=== PATIENT | female | born 1975 | race Caucasian/White ===

== ENCOUNTER 2023-09-22 11:43 | Day surgery (SDC) | payer OTHER ==
[~2023-09-22] VITALS: Ht 167.6 cm; Wt 68.2 kg
[~2023-09-22 11:43] MED LIST: IBLOOD GLUCOSE TEST STRIP 1 EA TEST VI PRN; LACTATED RINGER'S 1,000 ML IV SCH; LIDOCAINE HCL 1% 5 ML SDV INJ ONE; MIDAZOLAM HCL 5 MG/5 ML VIAL IV PRN; fentaNYL citrate 100 MCG/2 ML VIAL IV PRN
[2023-09-22 12:05] VITALS: BP 138/82
[2023-09-22] MEDS ORDERED: fentaNYL citrate 100 MCG/2 ML VIAL ONE (14:00)
[2023-09-22] MEDS ORDERED: MIDAZOLAM HCL 5 MG/5 ML VIAL ONE (14:00)
[2023-09-22 15:25] VITALS: BP 107/62
--- NOTE | 2023-09-22 15:53 | NUR ---
09/22/23 1553 Sheets,Tory 1452 PT ARRIVED TO PACU ON 3L VIA NC (NOT MASK) AND RESP EVEN AND UNLABORED. PT WAKES EASILY AND DENIES CONCERNS. PT ENCOURAGED TO PASS GAS NEEDED AND PLAN OF CARE DISCUSSED. 1456 O2 TRUNED OFF 1501 MD AT BEDSIDE TALKING TO PT. 1520 PT SIPPING SODA WITH NO CONCERNS. 1532 DC INSTRUCITONS GIVEN AND PT DRESSED HERSELF. PT DC WITH PAPERWORK AND ALL BELONGINGS. PT DC VIA WC
--- NOTE | 2023-09-24 12:12 | OR ---
[facility] [address] [place], [place] [address] Signed DATE OF OPERATION: 09/22/2023 SURGEON: Shane Musa MD PREOPERATIVE DIAGNOSIS: Colon screening. POSTOPERATIVE DIAGNOSIS: Normal colon to cecum. PROCEDURE: Total colonoscopy to cecum. ANESTHESIA: Intravenous sedation fentanyl 150 mcg and Versed 7 mg. INDICATION: This 48-year-old white woman is a patient of Fiorella Roldan. She is referred for screening colonoscopy. She has never had colonoscopy in the past. She is remarkably healthy. She has no symptoms of bleeding, diarrhea or constipation and no family history of colon cancer. Based on her age, she is admitted at this time to undergo colonoscopy for screening. She understands the risk of bleeding, infection, and perforation. FINDINGS: The prep was excellent. Complete colonoscopy was undertaken of the cecum. There was no evidence of polyps, diverticular formation, colitis, or cancer. DESCRIPTION OF PROCEDURE: The patient was brought to the endoscopy suite and placed in the lateral decubitus position, given intravenous sedation to the point of slurred speech and nystagmus. Digital rectal examination was normal. An Olympus video colonoscope was passed in the rectum and manipulated throughout the colon. She did have somewhat redundant colon on the transverse and right side. Abdominal wall stabilization was required to allow for passage of the scope ultimately to the cecum. Once the cecum was intubated, there was no evidence of polyps or other abnormality. The scope was withdrawn from the cecum and examination throughout showed no abnormality elsewhere. Specifically, she had no polyps, diverticular formation, colitis, or cancer. Retroflexed view of the rectum was normal. Scope was removed and Electronically Signed By: SHANE MUSA MD 09/24/23 1212 PATIENT NAME: DENILSON BOOTH OPERATIVE REPORT DATE OF : 71 REPORT #: [id number] PHYSICIAN: SHANE MUSA MD PCP: FIORELLA ROLDAN REPORT IS CONFIDENTIAL AND NOT TO BE RELEASED WITHOUT AUTHORIZATION [facility] [address] [place] [id number] Signed the patient was taken to the recovery room in good condition. CONCLUDING DIAGNOSIS: Normal colon. PLAN: Recommend repeat colonoscopy in 10 years, sooner if symptoms should develop. She will return to the ongoing care of KIRK Dowell. MD VIJAYA Watson/MODL /[id number] cc: KIRK Dowell Copies: FIORELLA ROLDAN ~ Electronically Signed By: SHANE MUSA MD 09/24/23 1212 PATIENT NAME: DENILSON BOOHT OPERATIVE REPORT DATE OF : 71 REPORT #: [id number] PHYSICIAN: SHANE MUSA MD PCP: FIORELLA ROLDAN REPORT IS CONFIDENTIAL AND NOT TO BE RELEASED WITHOUT AUTHORIZATION
== END 2023-09-22 15:32 | disposition home or self-care (01) ==
LOC: OPS 11:43 → DS 11:43 → OPS 13:00
PROVIDERS: ATTEND Surgery
PROC: 0DJD8ZZ Inspection of Lower Intestinal Tract, Via Natural or Artificial Opening Endoscopic (ICD-10-PCS; principal; 2023-09-22 13:00)
DX: Z12.11 Encounter for screening for malignant neoplasm of colon (principal)
CPT/HCPCS: 84703; 99153; G0500; J2250; J3010; J7121

== ENCOUNTER 2024-07-03 05:50 | Day surgery (SDC) | payer OTHER ==
[2024-06-27 16:00] VITALS: BP 136/89
[~2024-07-03] VITALS: Ht 167.6 cm; Wt 68.2 kg
[~2024-07-03 05:50] MED LIST changes: -IBLOOD GLUCOSE TEST STRIP 1 EA TEST VI PRN; -LIDOCAINE HCL 1% 5 ML SDV INJ ONE; -MIDAZOLAM HCL 5 MG/5 ML VIAL IV PRN; -fentaNYL citrate 100 MCG/2 ML VIAL IV PRN
[2024-07-03 05:58] VITALS: BP 133/81
[2024-07-03] MEDS ORDERED: HEParin SOD (PORCINE) 5,000 UNIT/ML SDV SUB-Q SCH (07:00)
[2024-07-03] MEDS ORDERED: IBLOOD GLUCOSE TEST STRIP 1 EA TEST VI PRN (07:00)
[2024-07-03] MEDS ORDERED: CEFAZOLIN SODIUM 2 GM/20 ML SYR IV SCH (07:00)
[2024-07-03] MEDS ORDERED: LIDOCAINE HCL 1% 5 ML SDV INJ ONE (07:00)
[2024-07-03] MEDS ORDERED: fentaNYL citrate 100 MCG/2 ML VIAL ONE (07:08)
[2024-07-03] MEDS ORDERED: MIDAZOLAM HCL 2 MG/2 ML VIAL ONE (07:08)
[2024-07-03] MEDS ORDERED: LIDOCAINE HCL 2% 5 ML SDV ONE (07:11)
[2024-07-03] MEDS ORDERED: DEXAMETHASONE SOD PHOS 4 MG/ML VIAL ONE (07:12)
[2024-07-03] MEDS ORDERED: ondansetron HCL 4 MG/2 ML VIAL ONE (07:12)
[2024-07-03] MEDS ORDERED: KETOROLAC TROMETHAMINE 30 MG/ML VIAL ONE (07:12)
[2024-07-03] MEDS ORDERED: propofoL 200 MG/20 ML VIAL ONE (07:12)
[2024-07-03] MEDS ORDERED: ACETAMINOPHEN 1,000 MG/100 ML VIAL IV ONE (08:45)
[2024-07-03] MEDS ORDERED: ondansetron HCL 4 MG/2 ML VIAL IV PRN (08:45)
[2024-07-03] MEDS ORDERED: SEVOFLURANE 250 ML BTL INH ONE (08:50)
[2024-07-03] MEDS ORDERED: ACETAMINOPHEN500 MG PO (08:51)
[2024-07-03] MEDS ORDERED: IBUPROFEN600 MG PO (08:51)
[2024-07-03] MEDS ORDERED: OXYCODON-ACETA1 EAC2 PO (08:51)
--- NOTE | 2024-07-03 08:52 | NUR ---
07/03/24 0852 Alea Guevara 0835 PT ARRIVED IN PACU NON RESPONSIVE TO NOXIOUS STIMULI WITH OPA IN PLACE. 0848 PT REACTIVE. OPA REMOVED.
[2024-07-03] MEDS ORDERED: ACETAMINOPHEN 500 MG TAB PO PRN (09:00)
[2024-07-03] MEDS ORDERED: LACTATED RINGER'S 1,000 ML IV SCH (09:00)
[2024-07-03] MEDS ORDERED: NALOXONE HCL 0.4 MG SYR IV PRN ×2 (09:00→11:30)
[2024-07-03] MEDS ORDERED: OXYCODONE/APAP 7.5/325 TAB PO PRN (09:00)
[2024-07-03] MEDS ORDERED: IBUPROFEN 600 MG TAB PO PRN (09:00)
[2024-07-03] MEDS ORDERED: ACETAMINOPHEN 1,000 MG/100 ML VIAL ONE (09:08)
[2024-07-03 09:19] VITALS: BP 129/72
--- NOTE | 2024-07-03 09:22 | NUR ---
PT ARRIVES TO DS DEPT FROM PACU VIA STRETCHER. PT REPORTS PAIN IS 3/10 AND TOLERABLE AT THIS TIME. PT IS DROWSY, BUT RESPONSIVE TO VERBAL STIMULI AT THIS TIME. PT ON RA W/O2 >90% VIA PULSE OX, RESPIRATIONS EVEN AND UNLABORED, NO SIGNS OF DISTRESS. ICE WATER, CRACKERS, AND APPLESAUCE AT BEDSIDE. PT REPORTS NO FURTHER NEEDS OR QUESTIONS AT THIS TIME. CALL LIGHT WITHIN REACH.
--- NOTE | 2024-07-03 10:30 | NUR ---
PT RESTING W/EYES CLOSED. RESPIRATIONS EVEN AND UNLABORED, NO SIGNS OF DISTRESS. CALL LIGHT WITHIN REACH.
[2024-07-03 10:47] VITALS: BP 124/77
--- NOTE | 2024-07-03 10:50 | NUR ---
IN PT ROOM FOR VS AND ASSESSMENT. PT REPORTS PAIN 2/10 AND TOLERABLE AT THIS TIME. PT TAKING SMALL SIPS OF WATER WITHOUT REPORTED NAUSEA OR DIFFICULTY SWALLOWING. HOB ELEVATED TO 45 DEGREES, PT EATING CRACKERS. CALL LIGHT WITHIN REACH. PT REPORTS NO FURTHER NEEDS OR QUESTIONS AT THIS TIME.
--- NOTE | 2024-07-03 11:15 | NUR ---
IN PT ROOM TO ASSIST W/GETTING DRESSED. PT CONTACTS WHO IS OUTSIDE WAITING TO TAKE PT HOME. DC EDUCATION PROVIDED, PT STATES VERBAL UNDERSTANDING AND NO FURTHER QUESTIONS AT THIS TIME. PT OFF OF UNIT VIA WC TO PASSENGER SIDE OF VEHICLE. ALL BELONGINGS IN PT POSSESSION AT THIS TIME. PT REPORTS NO FURTHER NEEDS. ICE WATER PROVIDED.
[2024-07-03] MEDS ORDERED: droPERidol 5 MG/2 ML VIAL IV PRN (11:30)
[2024-07-03] MEDS ORDERED: fentaNYL citrate 50 MCG/ML SDV IV PRN (11:30)
--- NOTE | 2024-07-03 14:12 | OR ---
[facility] [address] [place], [place] [address] Signed DATE OF OPERATION: 07/03/2024 SURGEON: Shane Musa MD PREOPERATIVE DIAGNOSIS: Right upper outer quadrant atypical lobular hyperplasia. POSTOPERATIVE DIAGNOSIS: Right upper outer quadrant atypical lobular hyperplasia. PROCEDURE: Partial mastectomy with PIERCE cooling pipe inspector localization and pedicle advancement for wound bed closure. ANESTHESIA: General LMA, , CABLE TELEVISION TECHNICIAN. INDICATION: This 49-year-old white woman is a patient of KIRK Dowell. She was noted to have a micro calcific lesion in the upper outer aspect of the right breast. Image guided biopsy showed atypical lobular hyperplasia. She had no palpable mass. Mammographic finding did confirm microcalcification and lobular lesion. She has no family history of breast cancer. She is admitted at this time to undergo excision of the tissue as per standard recommendation with this histologic finding. As the lesion is nonpalpable, a PIERCE cooling pipe inspector implement has been applied to allow for localization by PIERCE cooling pipe inspector technique. The risk of bleeding, infection, cosmetic deformity, and other unforeseen complications related to excision were reviewed with her, she understands and wished to proceed. FINDINGS: Good signal was noted with the PIERCE cooling pipe inspector device. The lesion was approximately 3 cm from the areolar margin in the upper outer aspect. A circumareolar incision was made to improve cosmesis. Complete excision of tissue approximately 4 x 3 x 4 cm was undertaken with the PIERCE cooling pipe inspector implement within the substance of the excised breast tissue. The remaining breast is relatively small and therefore pedicle advancement was used to minimize wound defect to provide optimal cosmesis. DESCRIPTION OF PROCEDURE: The patient was brought to the operating room, given a general LMA type anesthetic. Ancef antibiotic was given. Sequential compression device stockings were used and heparin subcutaneously administered. The PIERCE cooling pipe inspector reflector had been identified in Electronically Signed By: SHANE MUSA MD 07/03/24 1412 PATIENT NAME: DENILSON BOOTH OPERATIVE REPORT DATE OF : 71 REPORT #: [id number] PHYSICIAN: SHANE MUSA MD PCP: FIORELLA PORTILLO REPORT IS CONFIDENTIAL AND NOT TO BE RELEASED WITHOUT AUTHORIZATION [facility] [address] [place], [place] [address] Signed the preop staging area and was confirmed in the operating room. The right breast was prepared with a chlorhexidine solution and draped sterilely. The application of the PIERCE cooling pipe inspector probe showed the lesion to be approximately 2 to 3 cm from the areolar margin in the upper outer aspect. The areolar margin was deemed most appropriate for incision. The areolar margin was marked with a marking device and a curvilinear incision was made along the edge of the areolar margin. Dissection was carried through the dermis with electrocautery. Episodic use of the PIERCE cooling pipe inspector locating probe identified the lesion and a flap was elevated laterally allowing for further dissection to the parenchyma of the breast. Wide resection was taken inferior to the area in question, wide resection undertaken. The lesion itself was localized well within the parenchyma excised as affirmed by the PIERCE cooling pipe inspector device. A specimen x-ray was performed confirming the reflector within the substance of the excised tissue. The tissue itself had some cystic changes with milky fluid and some dense tissue, but no hard mass to suggest actual malignancy, pathology is pending of course. Hemostasis was assured within the biopsy site with electrocautery and irrigation. As there was a reasonably large defect in relation to her telida breast size, parenchymal advancement was undertaken using electrocautery, drawing the central and lateral portions of breast together, securing them with 2-0 Vicryl suture. The layer between the breast tissue and the skin was freed with electrocautery so as to minimize dimpling. Further closure of the wound in layers and ultimately the deep dermal layer allowed for preservation of good cosmesis. Once the skin was secured with 3-0 Vicryl, Steri-Strips were applied as was an Acticoat dressing. The specimen was sent for specimen radiograph and affirmed to have the reflector within the parenchyma of the breast excised. She was ultimately extubated and taken to the recovery room in good condition. Blood loss was less than 10 mL. Sponge, needle, and instrument counts were reported as correct x3. Shane Musa MD /MODL /[id number] cc: KIRK Dowell Electronically Signed By: SHANE MUSA MD 07/03/24 1412 PATIENT NAME: DENILSON BOOTH OPERATIVE REPORT DATE OF : 71 REPORT #: [id number] PHYSICIAN: SHANE MUAS MD PCP: FIORELLA PORTILLO REPORT IS CONFIDENTIAL AND NOT TO BE RELEASED WITHOUT AUTHORIZATION [address] [address] Signed Copies: FIORELLA PORTILLO ~ Electronically Signed By: SHANE MUSA MD 07/03/24 1412 PATIENT NAME: DENILSON BOOTH OPERATIVE REPORT DATE OF : 71 REPORT #: [id number] PHYSICIAN: SHANE MUSA MD PCP: FIORELLA PORTILLO REPORT IS CONFIDENTIAL AND NOT TO BE RELEASED WITHOUT AUTHORIZATION
--- NOTE | 2024-07-05 09:18 | PATH ---
[facility] [address] [place], [place] [address] Signed SPECIMEN(S): A RIGHT UPPER OUTER BREAST SPECIMEN SOURCE: A. RIGHT UPPER OUTER BREAST CLINICAL HISTORY: Atypical lobular hyperplasia of right breast. FINAL PATHOLOGIC DIAGNOSIS: Breast, right upper outer quadrants, excision: - Usual ductal hyperplasia - Columnar cell change - Fibroadenomatous changes - Biopsy site changes - Microcalcifications identified in association with nonneoplastic tissue BRP MICROSCOPIC EXAMINATION: Histologic sections of all submitted blocks are examined by light microscopy. These findings, together with the gross examination, support the pathologic diagnosis. GROSS DESCRIPTION: The specimen, labeled and designated "Kenna Booth, right upper outer atypical lobular hyperplasia," is received in formalin and consists of 23 g unoriented portion of yellow-moses fibroadipose tissue that is 6.3 x 3.5 x 3.2 cm. The specimen is inked and serially sectioned perpendicular to the long axis into 13 slices revealing approximately 80% of the specimen is a pink-white nodular and cystic fibrous tissue with areas of hemorrhage in slices 6-7. The remaining 20% is a yellow-moses greasy adipose tissue. A metallic ergonomics technician detector is identified in slice 4-5. No discrete mass lesions are grossly identified. The specimen is entirely submitted in 26 cassettes. Cassette Summary: (A1-A2) slice one, perpendicular (A3-A4) slice two (A5-A6) slice three (A7-A8) slice four (A9-A10) slice five (A11-A12) slice six (A13-A14) slice seven PATIENT NAME: DENILSON BOOTH PATHOLOGY DATE OF : 71 REPORT #: [id number] PHYSICIAN: MARK ORDAZ PCP: FIORELLA PORTILLO REPORT IS CONFIDENTIAL AND NOT TO BE RELEASED WITHOUT AUTHORIZATION [facility] [address] [place], [place] [address] Signed (A15-A16) slice eight (A17-A18) slice nine (A19-A20) slice 10 (A21-A22) slice 11 (A23-A24) slice 12 (A25-A26) slice 13, perpendicular Time of collection: 8:10 AM, July 03, 2024. Time into formalin: 8:16 AM July 03, 2024. Processor load time: 12 PM July 04, 2024. Ischemic time: 6 minutes Total fixation time in formalin: 27 hours 44 minutes The ASCO/CAP guidelines related to HER2 and hormone receptor testing in breast specimens have been met and the specimen has been placed in formalin within one hour and fixed in 10% neutral buffered formalin for 6 to 72 hours. FB (under the direct supervision of a pathologist) The Gross Description was prepared using a voice recognition system. The report was reviewed for accuracy; however, sound-alike word errors, addition and/or deletions may occur. If there is any question about this report, please contact Client Services. ADDITIONAL NOTES: Immunohistochemical and/or in situ hybridization studies if performed in this case included appropriate positive controls that reacted as expected. This test was developed and its performance characteristics determined by [facility]. It has not been cleared or approved by the U.S. Food and Drug Administration. The FDA has determined that such clearance or approval is not necessary. This test is used for clinical purposes. It should not be regarded as investigational or for research. [facility] is certified under the Clinical Laboratory Improvement Amendments of 1988 (CLIA) as qualified to perform high complexity clinical laboratory testing. PERFORMING LABORATORY: Technical component was performed by [facility], [facility] [place] [address] (CLIA# [id number]). Professional interpretation was performed by [facility] - [place] [facility], [facility] [place] [address] (CLIA#: [id number]). Diagnostician: Js Elizabeth MD PATIENT NAME: DENILSON BOOTHA PATHOLOGY DATE OF : 71 REPORT #: [id number] PHYSICIAN: MARK PATHOLOGY PCP: FIORELLA PORTILLO REPORT IS CONFIDENTIAL AND NOT TO BE RELEASED WITHOUT AUTHORIZATION [facility] [address] [facility] [place] [address] Signed Pathologist Electronically Signed 07/05/2024 Copies: ~ PATIENT NAME: DENILSON BOOTH JOSE C PATHOLOGY DATE OF : 71 REPORT #: [id number] PHYSICIAN: MARK ORDAZ PCP: FIORELLA PORTILLO REPORT IS CONFIDENTIAL AND NOT TO BE RELEASED WITHOUT AUTHORIZATION
== END 2024-07-03 11:25 | disposition home or self-care (01) ==
LOC: DS 05:50
PROVIDERS: ATTEND Surgery
PROC: 0HBT0ZZ Excision of Right Breast, Open Approach (ICD-10-PCS; principal; 2024-07-03 07:30)
DX: N60.91 Unspecified benign mammary dysplasia of right breast (principal); R92.0 Mammographic microcalcification found on diagnostic imaging of breast
CPT/HCPCS: 00400; 76098; J0131; J0690; J1100; J1644; J1885; J2003; J2250; J2405; J2704; J3010; J7121